=== PATIENT | female | born 1975 | race Caucasian/White ===

== ENCOUNTER 2016-07-23 16:56 | Emergency (ER) | payer OTHER ==
[~2016-07-23] VITALS: Ht 167.6 cm; Wt 103.6 kg
[~2016-07-23 16:56] MED LIST: MTR600X PO; NORE5TAB5 PO; OXYC-57 PO
[2016-07-23 17:00] VITALS: TEMP 36.4; Ht 167.6 cm; Wt 103.6 kg
[2016-07-23] MEDS ORDERED: MULTTAB58 PO (17:58)
[2016-07-23] MEDS ORDERED: OPTIRAY 320 IV PRN (18:00)
[2016-07-23 18:17] LABS: BASO % 0.6 %; BASO ABS # 0.03 K/uL (0-0.2); COMPLETE YES; EOS % 4.8 %; HEMATOCRIT 41.8 % (37-47); LYMPH % 41.1 %; LYMPH ABS # 2.04 K/uL (1.2-3.4); MEAN CELL VOLUME 81.3 fL (80-100); MEAN CORPUSCULAR HEMOGLOBIN 28.6 pg (25-34); MEAN CORPUSCULAR HGB CONC 35.2 g/dl (32-36); MEAN PLATELET VOLUME 11.1 fL (7.4-10.4); MONO % 6.5 %; PLATELET COUNT 191 K/uL (130-400); RED BLOOD COUNT 5.14 M/uL (4.2-5.4); WHITE BLOOD COUNT 4.96 K/uL (4.8-10.8)
--- NOTE | 2016-07-23 18:30 | DIAGNOSTIC IMAGING REPORT ---
CHEST ONE VIEW PORTABLE CLINICAL HISTORY: Upper abdominal pain and bloating. COMPARISON STUDY: No previous studies for comparison. FINDINGS: Lung volumes are normal. Lungs are clear. There is no pneumothorax or pleural effusion. Cardiac size is normal. Mediastinal contours are normal. IMPRESSION: No acute cardiopulmonary findings. Electronically signed by: Erwin Lee M.D. 07/23/2016 6:28 PM Dictated Date/Time: 07/23/2016 6:28 PM
[2016-07-23 18:31] LABS: URINE APPEARANCE CLEAR (CLEAR); URINE BILIRUBIN NEG (NEG); URINE COLOR YELLOW; URINE NITRITE NEG (NEG); UROBILINOGEN NEG (NEG); ZZUR CULT IF INDIC CLEAN CATCH NO
[2016-07-23 18:38] LABS: MANUAL MICROSCOPIC REQUIRED? NO; REVIEW REQ? NO
[2016-07-23 18:40] LABS: ALT/SGPT 30 U/L (12-78); AST/SGOT 15 U/L (15-37); BLOOD UREA NITROGEN 13 mg/dl (7-18); BUN/CREATININE RATIO 15.3 (10-20); CALCIUM 9.3 mg/dl (8.5-10.1); CARBON DIOXIDE 30 mmol/L (21-32); CHLORIDE 105 mmol/L (98-107); CREATININE 0.82 mg/dl (0.60-1.20); GLUCOSE 95 mg/dl (70-99); POTASSIUM 3.9 mmol/L (3.5-5.1); SODIUM 141 mmol/L (136-145)
[2016-07-23 18:45] LABS: ALB/GLOB RATIO 1.1 (0.9-2); ALKALINE PHOSPHATASE 106 U/L (45-117)
--- NOTE | 2016-07-23 20:03 | DIAGNOSTIC IMAGING REPORT ---
CT OF THE ABDOMEN AND PELVIS WITH CONTRAST CLINICAL HISTORY: Upper abdominal pain and bloating. COMPARISON STUDY: Pelvic ultrasound September 06, 2014. TECHNIQUE: Following IV administration of 119 mL of Optiray-320, axial images of the abdomen and pelvis were obtained from the lung bases to the proximal femurs. Images were reviewed in the axial, sagittal, and coronal planes. IV contrast was administered without complication. CT DOSE: 966.30 mGycm FINDINGS: The liver, spleen, adrenal glands, kidneys and pancreas are normal. There is a splenule. There is no biliary or pancreatic ductal dilatation. There is no peripancreatic or pericholecystic infiltration. There is no evidence for a bowel obstruction. The appendix is normal. There is no free fluid. There is no abscess or lymphadenopathy. Skeletal structures are unremarkable. The caliber and wall thickness of small and large bowel are normal. IMPRESSION: No acute process within the abdomen or pelvis. Electronically signed by: Erwin Lee M.D. 07/23/2016 8:01 PM Dictated Date/Time: 07/23/2016 7:57 PM
[2016-07-23 20:16] VITALS: BP 122/75; PULSE 62; O2SAT 98
[2016-07-23] MEDS ORDERED: HYDR-5688 PO (20:21)
--- NOTE | 2016-07-23 20:23 | EMERGENCY ROOM VISIT NOTE ---
History First contact with patient: 17:41 Chief Complaint: ABDOMINAL PAIN Stated Complaint: BELLY/BACK PAIN Nursing Triage Summary: pt had blood work and us done at [facility] yesterday pt has had pain in neck since [place] pt reports feeling full and bloated after eating anything pt goes into back pt has "full sensation" pt has follow up next week but reports "I am too uncomfortable to wait" History of Present Illness The patient is a 40 year old female who presents to the Emergency Room with complaints of abdominal bloating and fullness. The patient reports that for the past 2 weeks, she has had discomfort in her right neck with radiation down the right shoulder. She feels this may have been a muscle strain and is unsure if it is related to her current symptoms. She states that for the past few days , she has had abdominal bloating. She reports that anytime she eats something, she feels extremely full and is unable to eat any more. She reports that she was seen by her primary care provider yesterday and had blood work and an ultrasound done. She states that the ultrasound was negative and she was scheduled for some sort of gallbladder scan next week. The patient states that she is too uncomfortable to wait for the scan. She rates her discomfort an 8/ 10. She denies any nausea or vomiting, diarrhea, chest pain or shortness of breath. Review of Systems A complete 10-point Review of Systems was discussed with the patient, with pertinent positives and negatives listed in the History of Present Illness. All remaining Review of Systems questions can be considered negative unless otherwise specified. Past Medical/Surgical History Medical Problems: (1) Intrauterine (2) Vaginal delivery Family History Ovarian cancer Social History Smoking Status: Never Smoker Marital Status: Occupation Status: employed Current/Historical Medications Scheduled Multiple Vitamin (Multivitamin), 1 TAB PO DAILY Scheduled PRN Hydrocodone/Acetaminophen 5MG/325MG (Oolitic 5MG/325MG), 1-2 TABLET PO Q4H PRN for Pain Allergies Coded Allergies: Sulfamethoxazole w/Trimethoprim (Verified Allergy, Intermediate, HIVES, 05/01) Physical Exam Vital Signs Date Time Temp Pulse Resp B/P Pulse Ox O2 Delivery O2 Flow Rate FiO2 07/23/16 20:16 62 18 122/75 98 Room Air 07/23/16 19:39 62 16 107/70 99 Room Air 07/23/16 17:00 36.4 96 20 122/70 96 Room Air Physical Exam VITALS: Vitals are noted on the nurse's note and reviewed by myself. Vital signs stable. GENERAL: This is a 40-year-old female, in no acute distress, nondiaphoretic, well-developed well-nourished. SKIN: Capillary reflex less than 2 seconds. HEENT: Normocephalic. PERRLA. EOMI. Nares patent. Mucous membranes moist. Neck is supple without nuchal rigidity. HEART: Regular rate and rhythm without murmurs gallops or rubs. LUNGS: Clear to auscultation bilaterally without wheezes, rales or rhonchi. No retractions or accessory muscle use. ABDOMEN: Positive bowel sounds x 4. Mild tenderness to palpation over the epigastric region and right upper quadrant. No guarding or rebound tenderness. Negative Sharif sign. NEURO: Patient was alert and oriented to person place and time. Medical Decision & Procedures ER Provider Diagnostic Interpretation: CHEST ONE VIEW PORTABLE FINDINGS: Lung volumes are normal. Lungs are clear. There is no pneumothorax or pleural effusion. Cardiac size is normal. Mediastinal contours are normal. IMPRESSION: No acute cardiopulmonary findings. CT OF THE ABDOMEN AND PELVIS WITH CONTRAST FINDINGS: The liver, spleen, adrenal glands, kidneys and pancreas are normal. There is a splenule. There is no biliary or pancreatic ductal dilatation. There is no peripancreatic or pericholecystic infiltration. There is no evidence for a bowel obstruction. The appendix is normal. There is no free fluid. There is no abscess or lymphadenopathy. Skeletal structures are unremarkable. The caliber and wall thickness of small and large bowel are normal. IMPRESSION: No acute process within the abdomen or pelvis. Laboratory Results 07/23/16 18:00 Red Blood Count 5.14, Mean Corpuscular Volume 81.3, Mean Corpuscular Hemoglobin 28.6, Mean Corpuscular Hemoglobin Concent 35.2, Mean Platelet Volume 11.1, Neutrophils (%) (Auto) 47.0, Lymphocytes (%) (Auto) 41.1, Monocytes (%) (Auto) 6.5, Eosinophils (%) (Auto) 4.8, Basophils (%) (Auto) 0.6, Neutrophils # (Auto) 2.33, Lymphocytes # (Auto) 2.04, Monocytes # (Auto) 0.32, Eosinophils # (Auto) 0.24, Basophils # (Auto) 0.03 07/23/16 18:00 Test 07/23/16 17:45 07/23/16 18:00 Urine Color YELLOW Urine Appearance CLEAR (CLEAR) Urine pH 6.0 (4.5-7.5) Urine Specific [place] 1.020 (1.000-1.030) Urine Protein NEG (NEG) Urine Glucose (UA) NEG (NEG) Urine Ketones NEG (NEG) Urine Occult Blood NEG (NEG) Urine Nitrite NEG (NEG) Urine Bilirubin NEG (NEG) Urine Urobilinogen NEG (NEG) Urine Leukocyte Esterase NEG (NEG) White Blood Count 4.96 K/uL (4.8-10.8) Red Blood Count 5.14 M/uL (4.2-5.4) Hemoglobin 14.7 g/dL (12.0-16.0) Hematocrit 41.8 % (37-47) Mean Corpuscular Volume 81.3 fL (80-100) Mean Corpuscular Hemoglobin 28.6 pg (25-34) Mean Corpuscular Hemoglobin Concent 35.2 g/dl (32-36) Platelet Count 191 K/uL (130-400) Mean Platelet Volume 11.1 fL (7.4-10.4) Neutrophils (%) (Auto) 47.0 % Lymphocytes (%) (Auto) 41.1 % Monocytes (%) (Auto) 6.5 % Eosinophils (%) (Auto) 4.8 % Basophils (%) (Auto) 0.6 % Neutrophils # (Auto) 2.33 K/uL (1.4-6.5) Lymphocytes # (Auto) 2.04 K/uL (1.2-3.4) Monocytes # (Auto) 0.32 K/uL (0.11-0.59) Eosinophils # (Auto) 0.24 K/uL (0-0.5) Basophils # (Auto) 0.03 K/uL (0-0.2) RDW Standard Deviation 37.6 fL (36.4-46.3) RDW Coefficient of Variation 12.6 % (11.5-14.5) Immature Granulocyte % (Auto) 0.0 % Immature Granulocyte # (Auto) 0.00 K/uL (0.00-0.02) Anion Gap 6.0 mmol/L (3-11) Est Creatinine Clear Calc Drug Dose 109.7 ml/min Estimated GFR () 103.0 Estimated GFR (Non- 88.9 BUN/Creatinine Ratio 15.3 (10-20) Calcium Level 9.3 mg/dl (8.5-10.1) Total Bilirubin 0.4 mg/dl (0.2-1) Aspartate Amino Transf (AST/SGOT) 15 U/L (15-37) Alanine Aminotransferase (ALT/SGPT) 30 U/L (12-78) Alkaline Phosphatase 106 U/L (45-117) Troponin I < 0.015 ng/ml (0-0.045) Total Protein 7.6 gm/dl (6.4-8.2) Albumin 4.0 gm/dl (3.4-5.0) Globulin 3.6 gm/dl (2.5-4.0) Albumin/Globulin Ratio 1.1 (0.9-2) Lipase 222 U/L (73-393) Medical Decision Differential diagnosis includes cholecystitis, pancreatitis, gastritis, diverticulitis, bowel obstruction, among others. The patient was evaluated as above. Labs were drawn and IV access was obtained. Imaging studies were performed and read by radiology as above. The patient declined any analgesics. The patient was reassessed multiple times during their stay in the emergency department and remained in stable condition. The patient is a 40-year-old female who presents today complaining of abdominal bloating and discomfort. Labs revealed no leukocytosis, anemia or concerning electrolyte abnormalities. Lipase was not elevated. Urinalysis was not suggestive of infection. CT scan of the abdomen and pelvis was performed and showed no acute findings within the abdomen and pelvis. I do feel that the patient needs further, her imaging as well as possible upper endoscopy. I did recommend that she follow up with the primary care provider for further imaging as scheduled and return sooner for any new/concerning symptoms. I did give her a perception for a short course of pain medication. Based on the patient's presentation, lab results, and imaging studies, I feel the patient is stable for outpatient treatment. The patient's case was reviewed with Dr. Garcai, ED attending physician, who agreed with my assessment and treatment plan. Discharge instructions were reviewed with the patient. The patient verbalized understanding of my assessment and treatment plan and was discharged home in good condition. Impression Primary Impression: Epigastric abdominal pain Departure Information Dispostion Home / Self-Care Condition GOOD Prescriptions Hydrocodone/Acetaminophen 5MG/325MG (Oolitic 5MG/325MG) Tab 1-2 TABLET PO Q4H Y for Pain, #15 TAB For Initial Treatment Prov: Magali Stevens PA-C 07/23/16 Referrals Hortencia Johns (PCP) Patient Instructions A Signature Page Additional Instructions You have been treated in the Emergency Department your Abdominal Pain. Laboratory results and imaging studies have ruled out any emergent causes for your abdominal pain which would warrant admission or surgery. You have been prescribed Oolitic to be used for pain control. This is a narcotic medication. You cannot drive or consume alcohol while on this medicine. This medicine should only be used for pain that cannot be controlled with over-the- counter pain medicines. You may begin an [id number] Prilosec. For pain control, you can use the following [id number] medicines (if >12 yo): - Regular strength (325mg/tab) Tylenol (acetaminophen) 2 tabs every 4-6 hours as needed. Do not exceed 12 tablets in a 24 hour period. Avoid taking more than 4 grams (4000 mg) of Tylenol per day. This includes any other sources of acetaminophen you may take on a regular basis. - Regular strength (200 mg/tab) Advil (ibuprofen) 1-2 tabs every 4-6 hours as needed. Do not exceed a dose of 3200 mg per day. Follow-up with your primary care provider as scheduled next week for gallbladder testing. You may need an upper endoscopy in the future. Drink plenty of water and stay well hydrated. Return to the emergency department if your symptoms persist despite treatment plan outlined above or if the following symptoms occur: Severe vomiting, worsening abdominal pain, fevers or any other new/concerning symptoms.
== END 2016-07-23 20:32 | disposition home or self-care (01) ==
LOC: C.EDB 16:57 → C.EDD 20:32
DX: R10.13 Epigastric pain (principal)

== ENCOUNTER → 2017-06-20 | Outpatient (CLI) | payer OTHER ==
[~2017-06-20] MED LIST changes: -MTR600X PO; +MULTTAB58 PO; -NORE5TAB5 PO; -OXYC-57 PO
--- NOTE | 2017-06-21 14:26 | MAMMOGRAPHY REPORT ---
BILATERAL DIGITAL SCREENING MAMMOGRAM TOMOSYNTHESIS WITH CAD: 06/20/2017 CLINICAL HISTORY: Routine screening. Patient has no complaints. TECHNIQUE: Breast tomosynthesis in addition to standard 2D mammography was performed. Current study was also evaluated with a Computer Aided Detection (CAD) system. COMPARISON: Comparison is made to exam dated: 07/30/2015 mammogram - [facility]. BREAST COMPOSITION: The tissue of both breasts is almost entirely fatty. FINDINGS: The parenchymal pattern is unchanged. There are stable punctate macro calcifications in t he left breast. No developing mass, architectural distortion or cluster of suspicious microcalcifica tions is seen in either breast. IMPRESSION: ACR BI-RADS CATEGORY 2: BENIGN There is no mammographic evidence of malignancy. A 1 year screening mammogram is recommended. The pa tient will receive written notification of the results. Approximately 10% of breast cancers are not detected with mammography. A negative mammographic report should not delay biopsy if a clinically suggestive mass is present. Rabia Rolon M.D. ay/:06/20/2017 15:16:48 [employer] Supervisor: Chelly DHILLON(R)([place]), [facility] letter sent: Normal 1/2 BI-RADS Code: ACR BI-RADS Category 2: Benign
== END | disposition home or self-care (01) ==
LOC: C.MAMM 10:31
PROVIDERS: ATTEND Physician Assistant Medical
DX: Z12.31 Encounter for screening mammogram for malignant neoplasm of breast (principal)